=== PATIENT | female | born 1990 | race Caucasian/White ===

== ENCOUNTER 2018-02-10 10:28 | Emergency (ER) | payer BC ==
[2018-02-10 10:33] VITALS: BMI 27.1
[2018-02-10 10:36] VITALS: RESP 16
[2018-02-10] MEDS ORDERED: Sodium Chloride 0.9% 1,000 ML IV STA (11:09)
[2018-02-10 12:36] LABS: BASO % 0.4 % (0.0-2.0); EOS # 0.1 K/uL (0.0-0.7); EOS % 1.1 % (0.0-4.0); LYMPH # 3.1 K/uL (1.0-4.3); LYMPH % 35.1 % (20.0-40.0); MEAN CELL VOLUME 90.9 fl (81.0-99.0); MEAN CORPUSCULAR HEMOGLOBIN 31.3 pg (27.0-31.0); MEAN CORPUSCULAR HGB CONC 34.4 g/dL (33.0-37.0); MEAN PLATELET VOLUME 8.4 fl (7.2-11.7); MONO # 0.5 K/uL (0.0-0.8); NEUT # 5.2 K/uL (1.8-7.0); NEUT % 58.4 % (50.0-75.0); NRBC % 0.1 % (0.0-0.0); RBC 4.16 Mil/uL (3.80-5.20); RED CELL DISTRIBUTION WIDTH 13.7 % (11.5-14.5)
[2018-02-10 12:44] LABS: ALBUMIN 4.4 g/dL (3.5-5.0); CALCIUM 9.9 mg/dL (8.4-10.2); GFR AFRICAN-AMERICAN > 60; GFR NON-AFRICAN AMERICAN > 60; LIPASE 80 U/L (23-300)
[2018-02-10 12:45] LABS: ALT/SGPT 25 U/L (9-52); AST/SGOT 36 U/L (14-36); BLOOD UREA NITROGEN 5 mg/dl (7-17)
[2018-02-10] MEDS ORDERED: Sodium Chloride 0.9% 50 ML IV ONE (13:38)
[2018-02-10] MEDS ORDERED: Iohexol 300 50 ML ONE (13:38)
[2018-02-10] MEDS ORDERED: Iohexol 300 100 ML IJ ONE (13:40)
--- NOTE | 2018-02-10 14:29 | CT ---
PROCEDURE: CT Abdomen and Pelvis with contrast HISTORY: ruq, rlq pain COMPARISON: None. TECHNIQUE: Contrast dose: 95 cc Omnipaque 300 Radiation dose: Total exam DLP = 39.43 mGy-cm. This CT exam was performed using one or more of the following dose reduction techniques: Automated exposure control, adjustment of the mA and/or kV according to patient size, and/or use of iterative reconstruction technique. FINDINGS: LOWER THORAX: Unremarkable. LIVER: Unremarkable. No gross lesion or ductal dilatation. GALLBLADDER AND BILE DUCTS: No calcified stones. No mural thickening or pericholecystic fluid peer PANCREAS: Unremarkable. No gross lesion or ductal dilatation. SPLEEN: Unremarkable. ADRENALS: Unremarkable. No mass. KIDNEYS AND URETERS: Unremarkable. No hydronephrosis. No solid mass. VASCULATURE: Unremarkable. No aortic aneurysm. BOWEL: Unremarkable. No obstruction. No gross mural thickening. APPENDIX: Normal appendix. PERITONEUM: Trace fluid in the cul-de-sac. No generalized ascites. No pneumoperitoneum. LYMPH NODES: Unremarkable. No enlarged lymph nodes. BLADDER: Unremarkable. REPRODUCTIVE: Normal uterus BONES: Degenerative disc disease at L5-S1 OTHER FINDINGS: None. IMPRESSION: No acute abnormality.
--- NOTE | 2018-02-10 14:43 | ED PDOC ---
HPI: Abdomen Time Seen by Provider: 02/10/18 10:42 Chief Complaint (Nursing): Abdominal Pain Chief Complaint (Provider): Abdominal pain History Per: Patient History/Exam Limitations: no limitations Onset/Duration Of Symptoms: Days Outside of [place] travel?: No Current Symptoms Are (Timing): Still Present Location Of Pain/Discomfort: RUQ, RLQ Quality Of Discomfort: Dull Additional Complaint(s): 27 yo female with no medical problems presents with right sided abdominal pain for 1 week. Pt reports diarrhea x 1 today and intermittent nausea. PT denies similar in the past. Pt states she originally thought it was acid reflux but when the pain persisted she decided to go to urgent care this morning. Pt was sent to ER for evaluation of RLQ pain in urgent care. Pt denies fever/chills. Past Medical History Reviewed: Historical Data, Nursing Documentation, Vital Signs Vital Signs: Last Vital Signs Temp 98.1 F 02/10/18 10:33 Pulse 81 02/10/18 10:33 Resp 16 02/10/18 10:33 BP 98/67 L 02/10/18 10:33 Pulse Ox 97 02/10/18 10:33 - Medical History PMH: No Chronic Diseases - Surgical History Surgical History: No Surg Hx - Family History Family History: States: No Known Family Hx - Living Arrangements Living Arrangements: With Family - Social History Current smoker - smoking cessation education provided: No - Allergies Allergies/Adverse Reactions: Allergies Allergy/AdvReac Type Severity Reaction Status Date / Time polinae Allergy ITCHING Uncoded 02/10/18 10:46 Review of Systems ROS Statement: Except As Marked, All Systems Reviewed And Found Negative Constitutional: Negative for: Fever, Sweats Gastrointestinal: Positive for: Nausea, Abdominal Pain, Diarrhea (without blood or mucous). Negative for: Vomiting Physical Exam - Reviewed Nursing Documentation Reviewed: Yes Vital Signs Reviewed: Yes - Physical Exam Appears: Positive for: Well, Non-toxic, No Acute Distress Head Exam: Positive for: ATRAUMATIC, NORMAL INSPECTION, NORMOCEPHALIC Skin: Positive for: Normal Color, Warm, DRY Eye Exam: Positive for: Normal appearance ENT: Positive for: Normal ENT Inspection Neck: Positive for: Normal, Painless ROM Cardiovascular/Chest: Positive for: Regular Rate, Rhythm Respiratory: Positive for: CNT, Normal Breath Sounds Gastrointestinal/Abdominal: Positive for: Soft, Tenderness (right side). Negative for: Normal Exam Back: Positive for: Normal Inspection Extremity: Positive for: Normal ROM Neurologic/Psych: Positive for: Alert, Oriented - Laboratory Results Result Diagrams: 02/10/18 12:20 02/10/18 12:20 - ECG O2 Sat by Pulse Oximetry: 97 Medical Decision Making Medical Decision Making: Labs, CT normal. Urine dip without any abnormalities. Pt reports feeling better on re-evaluation. Pt is requesting to eat Stable vitals. Disposition - Clinical Impression Clinical Impression: Abdominal pain - Patient ED Disposition Is Patient to be Admitted: No Counseled Patient/Family Regarding: Diagnosis, Need For Followup, Rx Given - Disposition Referrals: Vidya Calvin MD [Medical Doctor] - Disposition: Routine/Home Disposition Time: 14:45 Condition: GOOD Instructions: Acute Abdomen (Belly Pain), Adult (DC)
[2018-02-10 14:54] VITALS: BP 111/73; PULSE 69; TEMP 98.4; O2SAT 98
== END 2018-02-10 15:28 | disposition home or self-care (01) ==
LOC: H.ER 10:28
DX: R10.9 Unspecified abdominal pain (principal)
CPT/HCPCS: 74177; 80053; 81025; 83690; 85025; 96361; 96374; 96375; 99283; J1885; J2405; J7030; Q9967